=== PATIENT | male | born 1995 ===

== ENCOUNTER → 2018-10-06 13:31 | Outpatient (CLI) | payer OTHER, SELFPAY ==
--- NOTE | 2018-10-06 | DI.MRI.S_ITS ---
PROCEDURE: MR LUMBAR SPINE WO CON INDICATIONS: LUMBAR SPINE FRACTURE TECHNIQUE: Noncontrast sagittal T1 spin echo and T2 fast echo, sagittal STIR, axial T1 and T2 fast spin echo through the lumbar spine. In cases with scoliosis, additional coronal T2 fast spin echo may be performed. COMPARISON: None. FINDINGS: Image quality: Excellent. Alignment and Curvature: There is normal bony alignment. Bone Marrow: There is mild L2 vertebral body compression fracture, which is likely acute given presence of marrow edema. There is no posterior displacement of fractured L2 vertebral body. Mild anterior wedge deformity of L2 is noted. Spinal Cord: Conus medullaris terminates at the L1 level. Visualized cord demonstrates normal signal and size. Paraspinous Soft Tissues: No paravertebral masses or hematoma. L1-L2: Mild posterior disc bulge with preserved disc height and disc signal. Mild central canal stenosis. Neural foramina stenosis. L2-L3: Normal appearance. L3-L4: Normal appearance. L4-L5: Preserved disc height. Mild disc desiccation. There is mild posterior disc bulge and possible small posterior central annular fissure. The central canal is patent. No foraminal stenosis. No definitive nerve root impingement. L5-S1: Mild loss of disc height and disc desiccation. There is diffuse posterior disc bulge. There is posterior central and left paramedian annular fissure. The central canal is mildly narrowed. No foraminal stenosis. No definitive nerve root impingement. IMPRESSION: 1. Mild acute L2 vertebral body compression fracture with mild anterior wedge deformity and marrow edema. 2. Multilevel degenerative disc disease at L1-L2, L4-L5 and L5-S1 as described. 3. Mild central canal stenosis at L1-L2 and L5-S1. 4. No foraminal stenosis. Dictated by: Zach Mckeon M.D. on 10/06/2018 at 16:28 Approved by: Zach Mckeon M.D. on 10/06/2018 at 16:37
== END ==
PROVIDERS: Visit Provider Orthopaedic Surgery
DX: S32.020A Wedge compression fracture of second lumbar vertebra, initial encounter for closed fracture (principal); M51.36 Other intervertebral disc degeneration, lumbar region; M51.37 Other intervertebral disc degeneration, lumbosacral region; M48.061 Spinal stenosis, lumbar region without neurogenic claudication; M48.07 Spinal stenosis, lumbosacral region; X58.XXXA Exposure to other specified factors, initial encounter
CPT/HCPCS: 72148

== ENCOUNTER → 2019-12-06 08:33 | Outpatient (CLI) | payer OTHER, SELFPAY ==
--- NOTE | 2019-12-06 | DI.MRI.S_ITS ---
PROCEDURE: MR SHOULDER RT W CON INDICATIONS: Pain in unspecified shoulder TECHNIQUE: After the administration of 12 mL of dilute intra-articular Gadolinium contrast, oblique coronal T1 and T2 spin echo with fat saturation, oblique sagittal T1 spin echo with and without fat saturation, oblique sagittal T2 fast spin echo with fat saturation, axial T1 spin echo with fat saturation through the shoulder. COMPARISON: [facility], , [place] SHOULDER INJECTION MR/CT RT, 12/06/2019, 7:47. FINDINGS: Image quality: Excellent. Rotator cuff: There is mild supraspinatus tendinosis. The infraspinatus and teres minor tendons are intact. The subscapularis tendon is intact. There is no significant rotator cuff muscle atrophy. Bones and bursae: No bone marrow contusions or fractures. There is mild acromioclavicular joint osteoarthrosis. The acromion demonstrates conventional anatomy, without an os acromiale. Capsule and soft tissues: The labrum and glenohumeral ligaments appear intact. There is moderate tendinosis of the intra-articular portion of the biceps long head tendon. The rotator interval appears normal, without fibrosis. The coracohumeral ligament is of normal thickness. No intra-articular bodies. IMPRESSION: 1. Mild supraspinatus tendinosis. No significant rotator cuff tendon tear is seen. 2. Moderate tendinosis of the biceps long head tendon. 3. Intact glenoid labrum. 4. Mild acromioclavicular joint osteoarthrosis. Dictated by: Lam Carvalho M.D. on 12/06/2019 at 9:57 Approved by: Lam Carvalho M.D. on 12/06/2019 at 10:04
--- NOTE | 2019-12-06 | DI.RAD.S_ITS ---
PROCEDURE: [place] SHOULDER INJECTION MR/CT RT INDICATIONS: Pain in unspecified shoulder TECHNIQUE: The indications, alternatives, benefits, risks, and complications of the procedure were explained to the patient. Written informed consent was obtained and placed in the chart. The shoulder was examined fluoroscopically and a site for needle placement chosen for entry into the glenohumeral joint from an anterior approach. The skin was prepped and draped in a sterile fashion, and 1% lidocaine infiltrated from skin down to joint capsule. A spinal needle was inserted into the glenohumeral joint, and a small amount of iodinated contrast media injected to confirm intra-articular placement of the needle tip. This was followed by approximately 12 mL dilute solution of a gadolinium containing MR contrast agent. The needle was removed and a dressing was applied. The patient was given postprocedural instructions and sent to the MR suite for MR imaging. FINDINGS: A single fluoroscopic spot image demonstrates intra-articular location of injected iodinated contrast. IMPRESSION: Successful fluoroscopically guided administration of dilute Gadolinium solution into the shoulder joint for MR arthrogram. Dictated by: Akash Burch M.D. on 12/06/2019 at 14:49 Approved by: Akash Burch M.D. on 12/06/2019 at 14:49
== END ==
PROVIDERS: PCP Family Medicine; Referring Provider Family Medicine; Visit Provider Student in an Organized Health Care Education/Training Program
DX: M25.511 Pain in right shoulder (principal); M19.011 Primary osteoarthritis, right shoulder
CPT/HCPCS: 23350; 73222; 77002

== ENCOUNTER → 2019-12-07 09:14 | Outpatient (CLI) | payer OTHER, SELFPAY ==
--- NOTE | 2019-12-07 | DI.RAD.S_ITS ---
PROCEDURE: FL SHOULDER INJECTION MR/CT LT INDICATIONS: Pain in unspecified shoulder TECHNIQUE: The indications, alternatives, benefits, risks, and complications of the procedure were explained to the patient. Written informed consent was obtained and placed in the chart. The shoulder was examined fluoroscopically and a site for needle placement chosen for entry into the glenohumeral joint from an anterior approach. The skin was prepped and draped in a sterile fashion, and 1% lidocaine infiltrated from skin down to joint capsule. A spinal needle was inserted into the glenohumeral joint, and a small amount of iodinated contrast media injected to confirm intra-articular placement of the needle tip. This was followed by approximately 12 mL dilute solution of a gadolinium containing MR contrast agent. The needle was removed and a dressing was applied. The patient was given postprocedural instructions and sent to the MR suite for MR imaging. FINDINGS: A single fluoroscopic spot image demonstrates intra-articular location of injected iodinated contrast. IMPRESSION: Successful fluoroscopically guided administration of dilute Gadolinium solution into the shoulder joint for MR arthrogram. Dictated by: Akash Burch M.D. on 12/07/2019 at 10:26 Approved by: Akash Burch M.D. on 12/07/2019 at 10:27
--- NOTE | 2019-12-07 | DI.MRI.S_ITS ---
PROCEDURE: MR SHOULDER LT W CON INDICATIONS: Pain in unspecified shoulder TECHNIQUE: After the administration of 12 mL of dilute intra-articular Gadolinium contrast, oblique coronal T1 and T2 spin echo with fat saturation, oblique sagittal T1 spin echo with and without fat saturation, oblique sagittal T2 fast spin echo with fat saturation, axial T1 spin echo with fat saturation through the shoulder. COMPARISON: [facility], MR, MR SHOULDER RT W CON, 12/06/2019, 9:22. FINDINGS: Image quality: Excellent. Rotator cuff: The supraspinatus, infraspinatus, and subscapularis tendons appear intact throughout. No rotator cuff muscle atrophy on sagittal images. Bones and bursae: No bone marrow contusions or fractures. No acromioclavicular joint degeneration. The acromion demonstrates conventional anatomy, without an os acromiale. Capsule and soft tissues: The labrum and glenohumeral ligaments appear intact. The long head of the biceps tendon demonstrates normal location and morphology. The rotator interval appears normal, without fibrosis. The coracohumeral ligament is of normal thickness. No intra-articular bodies. IMPRESSION: 1. No rotator cuff tear. 2. Negative evaluation of the labrum. 3. No explanation for shoulder pain. Dictated by: Jennifer Bustillo M.D. on 12/07/2019 at 10:20 Approved by: Jennifer Bustillo M.D. on 12/07/2019 at 10:22
== END ==
PROVIDERS: Referring Provider Student in an Organized Health Care Education/Training Program; Visit Provider Student in an Organized Health Care Education/Training Program
DX: M25.512 Pain in left shoulder (principal)
CPT/HCPCS: 23350; 73222; 77002